=== PATIENT | male | born 1980 | race Caucasian/White ===

== ENCOUNTER 2016-09-20 14:25 | Emergency (ER) | payer BC | END 2016-09-20 16:38 | disposition home or self-care (01) | LOC: ER 14:25 | DX: S62.632B Displaced fracture of distal phalanx of right middle finger, initial encounter for open fracture (principal); S68.122A Partial traumatic metacarpophalangeal amputation of right middle finger, initial encounter; I10 Essential (primary) hypertension; W23.0XXA Caught, crushed, jammed, or pinched between moving objects, initial encounter ==